=== PATIENT | male | born 1965 | race African-American/Black ===

== ENCOUNTER → 2017-01-01 | Outpatient (CLI) | payer OTHER ==
[2017-01-01 08:36] LABS: Basophils # (A) 0.1 k/uL (0-0.2); Basophils % (A) 1 %; CH 29.8; CHCM 33.6; Eosinophils # (A) 0.2 k/uL (0-0.7); Eosinophils % (A) 4 %; HCT 47.6 % (39.0-53.0); HDW 2.62; HGB 15.3 gm/dL (13.0-17.5); Luc # (Auto) 0.14; Luc % (Auto) 3; Lymphocytes # (A) 1.5 k/uL (1.0-4.8); Lymphocytes % (A) 28 %; MCH 28.7 pg (25.0-35.0); MCHC 32.2 g/dL (31.0-37.0); MCV 89.3 fL (80.0-100.0); Mean Platelet Volume 7.9; Monocytes # (A) 0.3 k/uL (0-1.0); Monocytes % (A) 6 %; Neutrophils % (A) 58 %; RBC 5.33 m/uL (4.30-5.90); RDW 15.1 % (11.5-15.5); WBC 5.2 k/uL (3.8-10.6); WBC (Perox) 5.41
[2017-01-01 08:49] LABS: ALT 44 U/L (21-72); AST 27 U/L (17-59); Alkaline Phosphatase 43 U/L (38-126); Anion Gap 8 mmol/L; Blood Urea Nitrogen 14 mg/dL (9-20); Calcium 9.2 mg/dL (8.4-10.2); Carbon Dioxide 23 mmol/L (22-30); Chloride 112 mmol/L (98-107); Cholesterol 104 mg/dL (<200); Glucose 101 mg/dL (74-99); HDL Cholesterol 46 mg/dL (40-60); Non-African American GFR(MDRD) >60 (>60 ml/min/1.73 sqM); Potassium 4.2 mmol/L (3.5-5.1); Sodium 143 mmol/L (137-145); Total Bilirubin 0.5 mg/dL (0.2-1.3); Total Protein 6.6 g/dL (6.3-8.2)
[2017-01-01 09:10] LABS: Prostate Specific Antigen 0.51 ng/mL (0.00-4.00)
[2017-01-01 13:23] LABS: Hemoglobin A1C 5.8 % (4.2-6.1)
== END | disposition home or self-care (01) ==
LOC: LABWHC1 07:54
PROVIDERS: ATTEND Internal Medicine
DX: E23.6 Other disorders of pituitary gland (principal)
CPT/HCPCS: 36415; 80053; 80061; 82306; 82533; 83001; 83002; 83036; 84146; 84153; 84305; 84403; 84439; 84443; 85025

== ENCOUNTER → 2017-01-09 | Outpatient (CLI) | payer OTHER ==
--- NOTE | 2017-01-09 19:47 | MR ---
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 FINDINGS: Extensive changes of sphenoidal sinusitis. Remains heterogeneous signal pattern within the pituitary gland consistent with previous surgery. The re is a concave superior border of the pituitary gland which is a normal configuration. The persists a 12 x 6 mm area of signal in the pituitary fossa stable in size. This may represent res idual thyroid tissue or neoplasm. Pituitary stock stable in position. Cavernous sinus enhances. Intracranial structures have a normal appearance. Visualized craniocervical junction maintained. Correlate for previous sinus surgery. Maxillary mucous retention cyst or sinusitis noted. IMPRESSION: 1. Postsurgical changes stable with a concave superior border of the pituitary gland which is a isabel l configuration. Heterogeneous signal within the pituitary fossa is stable from the previous exam lik sourav representing postsurgical change. 12 x 6 mm area of abnormal signal noted on the previous exam wi thin the pituitary fossa persistent is unchanged and may represent a degree of residual neoplasm. 2. Extensive sphenoidal sinusitis.
== END | disposition home or self-care (01) ==
LOC: RADMRIMAIN 18:19
PROVIDERS: ATTEND Internal Medicine
DX: E23.6 Other disorders of pituitary gland (principal); J32.3 Chronic sphenoidal sinusitis; Z98.890 Other specified postprocedural states
CPT/HCPCS: 70553; A9581

== ENCOUNTER 2018-10-27 11:08 | Day surgery (SDC) | payer OTHER ==
[2018-10-26 08:45] VITALS: BMI 36.9
[~2018-10-27 11:08] MED LIST: LACTATED RINGERS 1,000 ML IV SCH; LIDOCAINE 1% 20 ML VIAL (10MG/ML) FOR IV START INTRADERMA PRN
[2018-10-27 11:57] VITALS: TEMP 98.2
[2018-10-27] MEDS ORDERED: LIDOCAINE 1% INJ 10MG/ML (20 ML MDV) ONE (12:29)
[2018-10-27] MEDS ORDERED: PROPOFOL 10 MG/ML 20 ML VIAL IV ONE (12:29)
[2018-10-27 13:05] VITALS: RESP 18
--- NOTE | 2018-10-27 13:05 | P.PCN ---
Date of Procedure: 10/27/18 Procedure(s) Performed: Procedure: Total colonoscopy. Preoperative diagnosis: Screening for neoplasia. Postoperative diagnosis: Diverticulosis with no evidence of acute diverticulitis, strictures, polyps or cancer. Preparation: HalfLytely prep. Sedation: Was provided by anesthesia. Brief clinical history: The patient is a 53-year-old male who is scheduled for this evaluation for screening for neoplasia age being his risk factor. He has no abdominal complaints, bleeding or anemia. He had a prior exam several years back. Procedure: With the patient on his left lateral decubitus position and after informed consent and adequate sedation, the perianal area was inspected and it did not show any fissures or fistulas. There were no masses felt on digital rectal examination. The Olympus CFH 190L video colonoscope was then inserted in the rectum in the usual fashion and advanced to the cecum. There were multiple diverticular orifices seen scattered in the sigmoid with occasional one on the right side with no evidence of acute diverticulitis or strictures. The mucosa appeared healthy. No polyps or tumors were seen. I retroflexed the endoscope in the rectum before the endoscope was withdrawn. The patient tolerated the procedure well. Plan: The patient was reassured. Discussed dietary measures. He will follow up with you as planned and I recommended repeat exam in 10 years.
[2018-10-27 13:20] VITALS: BP 116/71; PULSE 80
== END 2018-10-27 13:36 | disposition home or self-care (01) ==
LOC: ORWHC2ENDO 11:08
DX: Z12.11 Encounter for screening for malignant neoplasm of colon (principal); K57.30 Diverticulosis of large intestine without perforation or abscess without bleeding; I10 Essential (primary) hypertension; J45.909 Unspecified asthma, uncomplicated; Z86.718 Personal history of other venous thrombosis and embolism; Z79.82 Long term (current) use of aspirin; Z79.891 Long term (current) use of opiate analgesic; Z79.899 Other long term (current) drug therapy; Z88.8 Allergy status to other drugs, medicaments and biological substances
CPT/HCPCS: 45378; J2001; J2704

== ENCOUNTER → 2018-11-24 | Outpatient (CLI) | payer OTHER ==
--- NOTE | 2018-11-24 14:28 | XR ---
EXAMINATION TYPE: XR knee limited LT DATE OF EXAM: 11/24/2018 COMPARISON: NONE HISTORY: Pain TECHNIQUE: Two views are submitted. FINDINGS: Severe narrowing patellofemoral joint with moderate narrowing of the knee joint. No erosive changes. Small suprapatellar bursal fluid collection.. Osseous structures are intact. No acute fracture seen . IMPRESSION: 1. Severe arthropathy..
== END | disposition home or self-care (01) ==
LOC: RADXRMAIN 13:56
PROVIDERS: ATTEND Family Medicine
DX: M17.12 Unilateral primary osteoarthritis, left knee (principal)

== ENCOUNTER → 2019-02-24 | Outpatient (CLI) | payer OTHER ==
--- NOTE | 2019-02-24 13:57 | MR ---
EXAMINATION TYPE: MR pituitary wo/w con DATE OF EXAM: 02/24/2019 COMPARISON: Prior pituitary MRI 01/09/2017, CT brain 04/29/2060, brain MRI 04/23/2016 HISTORY: difficulty walking, memory loss TECHNIQUE: Multiplanar, multisequence images of the sella turc[place] is performed without and with IV contrast, uti lizing 12 mL intravenous Gadavist . FINDINGS: Exam is stable in appearance. Pituitary gland shows unchanged appearance. Sphenoid sinus sh ows a similar appearance to prior exam. There are normal vascular flow voids. No abnormal enhancement following contrast administration. The craniocervical junction appears within normal limits. IMPRESSION: Stable exam.
== END ==
LOC: RADMRIMAIN 10:04
PROVIDERS: ATTEND Family Medicine
DX: H81.93 Unspecified disorder of vestibular function, bilateral (principal); Z00.01 Encounter for general adult medical examination with abnormal findings; Z86.018 Personal history of other benign neoplasm
CPT/HCPCS: 70553; A9585

== ENCOUNTER 2020-01-03 20:52 | Emergency (ER) | payer OTHER ==
[2020-01-03 20:58] VITALS: RESP 18; TEMP 98.1
[2020-01-03] MEDS ORDERED: LIDOCAINE 1% INJ 10MG/ML (20 ML MDV) SQ ONE (21:02)
[2020-01-03] MEDS ORDERED: ACET/COD 300 MG/30 MG STARTER PACK 6 TAB BTL PO STA (21:02)
[2020-01-03] MEDS ORDERED: SULFAMETH-TMP DS STARTER PACK 2 TAB BTL PO STA (22:07)
[2020-01-03] MEDS ORDERED: CEPHALEXIN 500MG STARTER PACK 4 CAP BTL PO STA (22:07)
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
[2020-01-03 22:29] VITALS: BP 130/85; PULSE 92
== END 2020-01-03 22:20 | disposition home or self-care (01) ==
LOC: EC 20:52
DX: L02.212 Cutaneous abscess of back [any part, except buttock and flank] (principal); I10 Essential (primary) hypertension; J45.909 Unspecified asthma, uncomplicated; F17.200 Nicotine dependence, unspecified, uncomplicated; Z79.51 Long term (current) use of inhaled steroids; Z79.82 Long term (current) use of aspirin; Z79.899 Other long term (current) drug therapy; Z88.8 Allergy status to other drugs, medicaments and biological substances; Z86.718 Personal history of other venous thrombosis and embolism
CPT/HCPCS: 87070; 87205; 99283; 10060; J2001

== ENCOUNTER → 2020-01-03 | Outpatient (CLI) | payer OTHER ==
[2020-01-03 08:43] LABS: Basophils # (A) 0.1 k/uL (0-0.2); Basophils % (A) 1 %; Eosinophils # (A) 0.3 k/uL (0-0.7); Eosinophils % (A) 4 %; HCT 48.3 % (39.0-53.0); HGB 15.7 gm/dL (13.0-17.5); Lymphocytes # (A) 1.7 k/uL (1.0-4.8); Lymphocytes % (A) 19 %; MCH 28.6 pg (25.0-35.0); MCHC 32.5 g/dL (31.0-37.0); MCV 87.8 fL (80.0-100.0); Mean Platelet Volume 7.6; Monocytes # (A) 0.6 k/uL (0-1.0); Monocytes % (A) 7 %; Neutrophils # (A) 6.2 k/uL (1.3-7.7); Neutrophils % (A) 68 %; Platelet Count 199 k/uL (150-450); RDW 13.8 % (11.5-15.5); WBC 9.1 k/uL (3.8-10.6)
[2020-01-03 15:35] LABS: African American GFR (CKD) 80.1 (60.0-200.0); Albumin/Globulin Ratio 1.6 (1.60-3.17); Anion Gap 7.2 mmol/L (4.00-12.00); BUN/Creat Ratio 11.67 Ratio (12.00-20.00); Calcium 9.2 mg/dL (8.7-10.3); Carbon Dioxide 26.8 mmol/L (21.6-31.8); Chol/HDL Ratio 3.14; Globulin 2.5 g/dL (1.6-3.3); LDL Cholesterol,Calculated 65.2 mg/dL (0.0-131.0); Non-African American GFR(CKD) 69.1 (60.0-200.0); Total Bilirubin 0.6 mg/dL (0.2-1.2); Total Protein 6.5 g/dL (6.2-8.2); VLDL Calculation 11.8 mg/dL (5.00-40.00)
[2020-01-03 15:43] LABS: Prostate Specific Antigen 0.5 ng/mL (0.0-3.5)
== END | disposition home or self-care (01) ==
LOC: LABWHC1 08:07
PROVIDERS: ATTEND Family Medicine
DX: I87.002 Postthrombotic syndrome without complications of left lower extremity (principal)
CPT/HCPCS: 36415; 80053; 80061; 84153; 85025

== ENCOUNTER 2021-08-30 23:43 | Emergency (ER) | payer OTHER ==
[2021-08-30 23:49] VITALS: RESP 18; TEMP 98.4
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
[2021-08-31 00:46] LABS: Basophils # (A) 0.1 k/uL (0-0.2); Basophils % (A) 1 %; Eosinophils # (A) 0.1 k/uL (0-0.7); Eosinophils % (A) 3 %; HGB 14.9 gm/dL (13.0-17.5); Lymphocytes # (A) 1.2 k/uL (1.0-4.8); Lymphocytes % (A) 30 %; MCH 29.2 pg (25.0-35.0); MCHC 33.1 g/dL (31.0-37.0); MCV 88.3 fL (80.0-100.0); Mean Platelet Volume 7.8; Monocytes # (A) 0.3 k/uL (0-1.0); Monocytes % (A) 8 %; Neutrophils # (A) 2.2 k/uL (1.3-7.7); Neutrophils % (A) 56 %; Platelet Count 180 k/uL (150-450); RDW 14.2 % (11.5-15.5)
--- NOTE | 2021-08-31 00:48 | XR ---
EXAMINATION TYPE: XR chest 2V DATE OF EXAM: 08/31/2021 COMPARISON: NONE HISTORY: Chest pain TECHNIQUE: 2 view FINDINGS: Heart and mediastinum are normal. Lungs are clear. Diaphragm is normal. Bony thorax is inta ct. There are chest leads. IMPRESSION: No active cardiopulmonary disease. Normal heart.
[2021-08-31 00:55] LABS: ALT 40 U/L (4-49); AST 37 U/L (17-59); African American GFR (CKD) >90 (>60 ml/min/1.73 sqM); Albumin 3.8 g/dL (3.5-5.0); Alkaline Phosphatase 56 U/L (38-126); Anion Gap 6 mmol/L; Blood Urea Nitrogen 17 mg/dL (9-20); Calcium 8.3 mg/dL (8.4-10.2); Carbon Dioxide 28 mmol/L (22-30); Chloride 108 mmol/L (98-107); Glucose 108 mg/dL (74-99); Non-African American GFR(CKD) 80 (>60 ml/min/1.73 sqM); Potassium 3.9 mmol/L (3.5-5.1); Sodium 142 mmol/L (137-145); Total Bilirubin 0.5 mg/dL (0.2-1.3); Total Protein 6.6 g/dL (6.3-8.2)
[2021-08-31 00:57] LABS: Partial Thromboplastin Time 22.4 sec (22.0-30.0); Prothrombin Time 10.7 sec (9.0-12.0)
--- NOTE | 2021-08-31 02:46 | CT ---
EXAMINATION TYPE: CT chest angio for PE DATE OF EXAM: 08/31/2021 COMPARISON: None HISTORY: chest pain/elevated d-dimer CT DLP: 563.8 mGycm Automated exposure control for dose reduction was used. CONTRAST: Performed with IV Contrast, patient injected with 80ml mL of Isovue 370. Images obtained from the thoracic inlet to the diaphragm with IV contrast. There are Three-D postproc essed images. There is minimal pleural thickening in the posterior lung roa. No evidence of a pulmonary mass. Mi nimal subsegmental atelectasis is present at the right lung base. There is slight elevated right diap hragm. There are no hilar masses. There is no mediastinal adenopathy. Thoracic aorta is intact. No an eurysm or dissection. The ascending aorta measures 3.5 cm. There is normal contrast opacification of the pulmonary arteries. No filling defect. Upper abdominal soft tissues show calcified cyst at the anterior aspect of the tail of the pancreas a t the splenic hilum that could be thrombosed splenic artery aneurysm. There are multiple small hypode nse areas in the liver. These are incompletely evaluated. Largest measures 1.5 cm. IMPRESSION: No evidence of pulmonary embolism. Mild elevation of the right diaphragm could relate to mild paralys is. No suspicious pulmonary mass.
[2021-08-31 04:29] VITALS: BP 145/89; PULSE 64
== END 2021-08-31 04:39 | disposition other institution (70) ==
LOC: EC 23:43
DX: R07.89 Other chest pain (principal); Z88.8 Allergy status to other drugs, medicaments and biological substances; Z87.891 Personal history of nicotine dependence; Z79.899 Other long term (current) drug therapy; Z79.82 Long term (current) use of aspirin
CPT/HCPCS: 36415; 93005; 85379; 80053; 83735; 84484; 85025; 85610; 85730; 71046; 71275; 99285; Q9967

== ENCOUNTER 2022-01-12 14:36 | Emergency (ER) | payer OTHER ==
[2022-01-12 14:52] VITALS: RESP 18; TEMP 98.7
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
[2022-01-12 16:14] VITALS: BP 146/97; PULSE 72
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
== END 2022-01-12 16:20 | disposition home or self-care (01) ==
LOC: EC 14:36
DX: S09.90XA Unspecified injury of head, initial encounter (principal); J45.909 Unspecified asthma, uncomplicated; I10 Essential (primary) hypertension; Z86.718 Personal history of other venous thrombosis and embolism; Z87.891 Personal history of nicotine dependence; Z79.51 Long term (current) use of inhaled steroids; Z79.899 Other long term (current) drug therapy; Z88.8 Allergy status to other drugs, medicaments and biological substances; Z88.3 Allergy status to other anti-infective agents; W18.00XA Striking against unspecified object with subsequent fall, initial encounter
CPT/HCPCS: 70450; 99284

== ENCOUNTER → 2022-01-23 | Outpatient (CLI) | payer OTHER ==
--- NOTE | 2022-01-25 04:17 | MR ---
EXAMINATION TYPE: MR brain wo/w con DATE OF EXAM: 01/23/2022 COMPARISON: None HISTORY: Trigeminal neuralgia, history of tumor removal 2014 CONTRAST: Standard multiplanar, multisequence MRI departmental protocol images were obtained without contrast a nd with 11 mL intravenous Gadavist gadolinium contrast. Multiplanar multi echo imaging of the brain performed without and with the IV contrast. On the diffusion images there are numerous scattered variable sized foci of increased signal at the g ray-white matter junction both cerebral hemispheres. Some of these are adjacent to the ventricles. Le sions measure up to 1.5 cm. There is corresponding numerous foci of increased signal on the T2 and FL AIR images in the periventricular white matter. On the T1 images these lesions mostly have low signal and do not enhance. There is normal enhancement of the venous sinuses. There is inhomogeneous enhanc ement of the sella turcica. Sella turcica is enlarged. This is also present on previous exams and not significantly different. There is intermediate signal in the posterior sphenoid sinus that could be surgical changes. IMPRESSION: Enlarged sella turcica with apparent postsurgical changes appear fairly stable compared to MR scan of 02/24/2019 Extensive periventricular white matter signal changes could be demyelinating disease. White matter di sease shows minimal progression compared to old MR scan of 08/19/2013. Microvascular ischemia also pos sible.
== END | disposition home or self-care (01) ==
LOC: RADMRIMAIN 19:45
PROVIDERS: ATTEND Neurological Surgery
DX: G50.0 Trigeminal neuralgia (principal)
CPT/HCPCS: 70553; A9585

== ENCOUNTER → 2022-05-20 | Outpatient (CLI) | payer OTHER ==
--- NOTE | 2022-05-20 16:19 | XR ---
EXAMINATION TYPE: XR lumbosacral spine min 4V DATE OF EXAM: 05/20/2022 3:57 PM INDICATION: Patient age:Male; 56 years old; Reason for study: R53.1 Weakness, R26.2 Difficulty in walking; COMPARISON: None TECHNIQUE: Frontal, lateral , bilateral oblique and coned in L5-S1 lateral views of the spine. FINDINGS: No evidence of any acute osseous pathology. No evidence of loss of vertebral body height i s seen. There is normal alignment of the lumbar vertebral bodies. Mild scattered disc space narrowing . Multilevel marginal osteophyte formation throughout the visualized spine. There is facet joint arth ropathy throughout the spine. Scattered at least mild neural foraminal stenosis. Right upper quadrant cholecystectomy clips. IMPRESSION: 1. No acute fracture. 2. Mild multilevel disc degeneration.
== END | disposition home or self-care (01) ==
LOC: RADXRMAIN 15:35
PROVIDERS: ATTEND Family Medicine
DX: M51.37 Other intervertebral disc degeneration, lumbosacral region (principal); R53.1 Weakness; R26.2 Difficulty in walking, not elsewhere classified; R73.09 Other abnormal glucose
CPT/HCPCS: 72110; 83036

== ENCOUNTER 2022-08-05 13:20 | Emergency (ER) | payer OTHER ==
[2022-08-05 13:47] VITALS: RESP 18
[2022-08-05] MEDS ORDERED: IBUPROFEN 600 MG TAB PO STA (13:56)
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
[2022-08-05 14:33] VITALS: BP 140/74; PULSE 76; TEMP 98
== END 2022-08-05 14:33 | disposition home or self-care (01) ==
LOC: EC 13:20
DX: K11.8 Other diseases of salivary glands (principal); J45.909 Unspecified asthma, uncomplicated; I10 Essential (primary) hypertension; Z86.718 Personal history of other venous thrombosis and embolism; Z87.891 Personal history of nicotine dependence; F12.90 Cannabis use, unspecified, uncomplicated; Z88.8 Allergy status to other drugs, medicaments and biological substances; Z79.82 Long term (current) use of aspirin; Z79.899 Other long term (current) drug therapy
CPT/HCPCS: 99283

== ENCOUNTER 2022-08-30 17:24 | Emergency (ER) | payer OTHER ==
[2022-08-30 17:32] VITALS: RESP 18
[2022-08-30] MEDS ORDERED: diphenhydrAMINE 50 MG CAP PO STA (17:41)
[2022-08-30] MEDS ORDERED: FLUORESCEIN STRIPS 1 MG STRIP BOTH EYES ONE (17:41)
[2022-08-30] MEDS ORDERED: PROPARACAINE 0.5% OPHTH DROPS 15 ML BTL LEFT EYE STA (17:41)
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
[2022-08-30 18:10] VITALS: BP 149/88; PULSE 76; TEMP 98.5
== END 2022-08-30 18:16 | disposition home or self-care (01) ==
LOC: EC 17:24
DX: L30.9 Dermatitis, unspecified (principal); I10 Essential (primary) hypertension; J45.909 Unspecified asthma, uncomplicated; F12.90 Cannabis use, unspecified, uncomplicated; Z79.82 Long term (current) use of aspirin; Z79.899 Other long term (current) drug therapy; Z87.891 Personal history of nicotine dependence; Z88.8 Allergy status to other drugs, medicaments and biological substances
CPT/HCPCS: 99282

== ENCOUNTER 2022-12-10 00:10 | Observation (INO) | payer OTHER ==
[2022-12-10 00:15] VITALS: TEMP 98.2
[2022-12-10 00:58] LABS: Basophils % (A) 1 %; Eosinophils # (A) 0.2 k/uL (0-0.7); Eosinophils % (A) 4 %; HCT 45.2 % (39.0-53.0); Lymphocytes # (A) 1.4 k/uL (1.0-4.8); Lymphocytes % (A) 30 %; MCH 29.2 pg (25.0-35.0); MCHC 33.3 g/dL (31.0-37.0); MCV 87.7 fL (80.0-100.0); Mean Platelet Volume 7.7; Monocytes # (A) 0.4 k/uL (0-1.0); Monocytes % (A) 8 %; Neutrophils # (A) 2.5 k/uL (1.3-7.7); Neutrophils % (A) 54 %; Platelet Count 176 k/uL (150-450); RBC 5.15 m/uL (4.30-5.90); RDW 14.1 % (11.5-15.5); WBC 4.6 k/uL (3.8-10.6)
[2022-12-10 01:06] LABS: ALT 37 U/L (4-49); AST 33 U/L (17-59); African American GFR (CKD) 67 (>60 ml/min/1.73 sqM); Alkaline Phosphatase 66 U/L (38-126); Anion Gap 5 mmol/L; Blood Urea Nitrogen 20 mg/dL (9-20); Calcium 8.6 mg/dL (8.4-10.2); Carbon Dioxide 30 mmol/L (22-30); Chloride 106 mmol/L (98-107); Glucose 86 mg/dL (74-99); Non-African American GFR(CKD) 58 (>60 ml/min/1.73 sqM); Potassium 4.3 mmol/L (3.5-5.1); Sodium 141 mmol/L (137-145); Total Bilirubin 0.3 mg/dL (0.2-1.3); Total Protein 6.8 g/dL (6.3-8.2)
[2022-12-10 01:27] LABS: Partial Thromboplastin Time 25.1 sec (22.0-30.0); Prothrombin Time 10.6 sec (9.0-12.0)
--- NOTE | 2022-12-10 02:30 | XR ---
EXAM: XR Chest, 2 Views CLINICAL HISTORY: ITS.REASON XR Reason: chest pain TECHNIQUE: Frontal and lateral views of the chest. COMPARISON: 08/31/2021 FINDINGS: Lungs: Unremarkable. No consolidation. Pleural space: Unremarkable. No pneumothorax. No pleural effusions. Heart: Unremarkable. No cardiomegaly. Mediastinum: Unremarkable. Bones/joints: No acute osseous abnormalities. IMPRESSION: No acute cardiopulmonary disease.
[2022-12-10] MEDS ORDERED: NALOXONE 0.4 MG/ML 1 ML VIAL IV PRN (04:42)
[2022-12-10] MEDS ORDERED: ONDANSETRON 4 MG/2 ML VIAL IVP PRN (04:42)
[2022-12-10] MEDS ORDERED: MORPHINE SULFATE 4 MG/ML SYRINGE IV PRN (04:42)
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
[2022-12-10] MEDS ORDERED: SODIUM CHLORIDE 0.9% 1,000 ML IV SCH (04:45)
[2022-12-10] MEDS ORDERED: HYDROcodone/APAP 7.5-325MG 1 EACH TAB PO PRN (10:06)
[2022-12-10] MEDS ORDERED: ASPIRIN 81 MG PO SCH (10:15)
[2022-12-10] MEDS ORDERED: MONTELUKAST 10 MG TAB PO SCH (10:15)
[2022-12-10] MEDS ORDERED: carBAMazepine 300 MG CPMP.12HR PO SCH (10:15)
[2022-12-10] MEDS ORDERED: amLODIPine 5 MG TAB PO SCH (10:15)
[2022-12-10] MEDS ORDERED: TAMSULOSIN 0.4 MG CAP.ER.24H PO SCH (10:15)
[2022-12-10] MEDS ORDERED: LORATADINE 10 MG TAB PO SCH (10:15)
[2022-12-10 10:44] VITALS: PULSE 62; RESP 18
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
--- NOTE | 2022-12-10 12:51 | CA ---
Transthoracic Echo Report Name: Ethan Valdez Age: 57 Gender: M : 1965 Exam Date: 12/10/2022 11:05 Exam Location: [place] [facility] Ht (in): 70 Wt (lb): 230 Ordering Physician: Toma Manriquez Attending/Referring Phys: Declan PEACE Stave Cutter Reinaldo Silva Procedure CPT: Indications: Chest Pain Cardiac Hx: Technical Quality: Fair Contrast 1: Total Dose (mL): Contrast 2: Total Dose (mL): MEASUREMENTS (Male / Female) Normal Values 2D ECHO LV Diastolic Diameter PLAX 4.9 cm 4.2 - 5.9 / 3.9 - 5.3 cm LV Systolic Diameter PLAX 3.4 cm IVS Diastolic Thickness 1.3 cm 0.6 - 1.0 / 0.6 - 0.9 cm LVPW Diastolic Thickness 1.3 cm 0.6 - 1.0 / 0.6 - 0.9 cm LV Relative Wall Thickness 0.5 RV Internal Dim ED PLAX 4.3 cm LVOT Diameter 2.1 cm Aortic Root Diameter 3.2 cm LA Systolic Diameter LX 3.2 cm 3.0 - 4.0 / 2.7 - 3.8 cm LV Diastolic Volume MOD BP 68.4 cm??? 67 - 155 / 56 - 104 cm??? LV Systolic Volume MOD BP 36.7 cm??? 22 - 58 / 19 - 49 cm??? LV Ejection Fraction MOD BP 46.3 % >= 55 % LV Diastolic Volume MOD 4C 64.5 cm??? LV Systolic Volume MOD 4C 35.0 cm??? LV Ejection Fraction MOD 4C 45.7 % LV Diastolic Length 4C 6.7 cm LV Systolic Length 4C 6.1 cm LV Diastolic Volume MOD 2C 74.2 cm??? LV Systolic Volume MOD 2C 25.8 cm??? LV Ejection Fraction MOD 2C 65.3 % LV Diastolic Length 2C 6.7 cm LV Systolic Length 2C 5.5 cm LA Volume 46.3 cm??? 18 - 58 / 22 - 52 cm??? Ascending Aorta Diameter 3.0 cm DOPPLER AV Peak Velocity 109.8 cm/s AV Peak Gradient 4.8 mmHg LVOT Peak Velocity 81.6 cm/s LVOT Peak Gradient 2.7 mmHg AV Area Cont Eq pk 2.5 cm??? MV Peak Velocity 70.0 cm/s MV Peak Gradient 2.0 mmHg MV Mean Velocity 34.5 cm/s MV Mean Gradient 0.6 mmHg MV Velocity Time Integral 23.8 cm MR Peak Velocity 192.4 cm/s MR Peak Gradient 14.8 mmHg Mitral E Point Velocity 50.9 cm/s Mitral A Point Velocity 56.7 cm/s Mitral E to A Ratio 0.9 MV Deceleration Time 200.8 ms MV E' Velocity 8.4 cm/s Mitral E to MV E' Ratio 6.1 TR Peak Velocity 214.5 cm/s TR Peak Gradient 18.4 mmHg Right Ventricular Systolic Press 24.0 mmHg PV Peak Velocity 112.9 cm/s PV Peak Gradient 5.1 mmHg FINDINGS Left Ventricle Normal LV size . Mild concentric LVH. Left ventricular ejection fraction is estimated at 50 %. Right Ventricle RV lenny upper limits of normal in size. RVSP= 33mmhg. Right Atrium Normal right atrial size. Left Atrium Normal left atrial size. Mitral Valve Structurally normal mitral valve. Trace MR. Aortic Valve Trileaflet aortic valve. No aortic valve stenosis or regurgitation. Tricuspid Valve Structurally normal tricuspid valve. Mild TR. Pulmonic Valve Structurally normal pulmonic valve. Mild PI. Pericardium Normal pericardium. Aorta Normal size aortic root and proximal ascending aorta. CONCLUSIONS Left ventricular ejection fraction 50% RVSP 33 Trace mitral regurgitation Mild tricuspid regurgitation Previewed by: Dr. Ryan Branch DO (Electronically Signed) Final Date: 10 December 2022 12:49
[2022-12-10 14:42] VITALS: BP 128/80
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
== END 2022-12-10 14:40 | disposition home or self-care (01) ==
LOC: EC 00:10 → 6NMEDSUR 04:43
PROVIDERS: ADMIT Hospitalist; ATTEND Hospitalist
DX: R07.89 Other chest pain (principal); I10 Essential (primary) hypertension; J45.909 Unspecified asthma, uncomplicated; F12.90 Cannabis use, unspecified, uncomplicated; Z87.891 Personal history of nicotine dependence; Z86.718 Personal history of other venous thrombosis and embolism; Z79.82 Long term (current) use of aspirin; Z79.899 Other long term (current) drug therapy
CPT/HCPCS: 99285; 36415; 93005; 93306; 80053; 84484; 85025; 85610; 85730; 71046; G0378

== ENCOUNTER → 2022-12-12 | Outpatient (CLI) | payer OTHER ==
[2022-12-12 20:32] LABS: BUN/Creat Ratio 16.64 Ratio (12.00-20.00); Blood Urea Nitrogen 18.3 mg/dL (9.0-27.0); Calcium 8.6 mg/dL (8.7-10.3); Carbon Dioxide 28.7 mmol/L (21.6-31.8); Chloride 107 mmol/L (96-109); Glucose 125 mg/dL (70-110); Potassium 4.1 mmol/L (3.5-5.5); Sodium 143 mmol/L (135-145)
== END | disposition home or self-care (01) ==
LOC: LABWHC1 13:08
PROVIDERS: ATTEND Nurse Practitioner Family
DX: N17.8 Other acute kidney failure (principal)
CPT/HCPCS: 36415; 80048

== ENCOUNTER 2023-01-09 09:34 | Emergency (ER) | payer OTHER ==
[2023-01-09 10:31] LABS: Basophils % (A) 1 %; Eosinophils # (A) 0.1 k/uL (0-0.7); Eosinophils % (A) 3 %; HCT 46.2 % (39.0-53.0); HGB 15.1 gm/dL (13.0-17.5); Lymphocytes # (A) 0.8 k/uL (1.0-4.8); Lymphocytes % (A) 24 %; MCH 28.5 pg (25.0-35.0); MCHC 32.6 g/dL (31.0-37.0); MCV 87.3 fL (80.0-100.0); Mean Platelet Volume 7.7; Monocytes # (A) 0.2 k/uL (0-1.0); Monocytes % (A) 7 %; Neutrophils # (A) 2.1 k/uL (1.3-7.7); Neutrophils % (A) 64 %; Platelet Count 166 k/uL (150-450); RBC 5.29 m/uL (4.30-5.90); RDW 14.2 % (11.5-15.5); WBC 3.3 k/uL (3.8-10.6)
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
[2023-01-09 11:03] LABS: ALT 40 U/L (4-49); AST 62 U/L (17-59); African American GFR (CKD) >90 (>60 ml/min/1.73 sqM); Albumin 4.5 g/dL (3.5-5.0); Alkaline Phosphatase 70 U/L (38-126); Anion Gap 8 mmol/L; Blood Urea Nitrogen 21 mg/dL (9-20); Calcium 8.6 mg/dL (8.4-10.2); Carbon Dioxide 24 mmol/L (22-30); Chloride 107 mmol/L (98-107); Glucose 97 mg/dL (74-99); Non-African American GFR(CKD) >90 (>60 ml/min/1.73 sqM); Sodium 139 mmol/L (137-145); Total Bilirubin 1.6 mg/dL (0.2-1.3); Total Protein 7.7 g/dL (6.3-8.2)
[2023-01-09 11:06] LABS: Potassium 5.7 mmol/L (3.5-5.1)
[2023-01-09 12:48] VITALS: BP 149/98; PULSE 80; RESP 19; TEMP 98.6
== END 2023-01-09 12:47 | disposition home or self-care (01) ==
LOC: EC 09:34
DX: G50.0 Trigeminal neuralgia (principal); J45.909 Unspecified asthma, uncomplicated; I10 Essential (primary) hypertension; F12.90 Cannabis use, unspecified, uncomplicated; Z79.82 Long term (current) use of aspirin; Z79.899 Other long term (current) drug therapy; Z87.891 Personal history of nicotine dependence; Z88.6 Allergy status to analgesic agent; Z88.8 Allergy status to other drugs, medicaments and biological substances
CPT/HCPCS: 36415; 80053; 85025; 99284

== ENCOUNTER 2023-02-23 21:42 | Emergency (ER) | payer OTHER ==
[2023-02-23 22:07] VITALS: TEMP 98.4
[2023-02-23 22:11] LABS: Basophils % (A) 0 %; Eosinophils # (A) 0.1 k/uL (0-0.7); Eosinophils % (A) 5 %; HCT 44.5 % (39.0-53.0); HGB 14.9 gm/dL (13.0-17.5); Lymphocytes % (A) 32 %; MCH 29.3 pg (25.0-35.0); MCHC 33.4 g/dL (31.0-37.0); MCV 87.8 fL (80.0-100.0); Mean Platelet Volume 7.5; Monocytes # (A) 0.2 k/uL (0-1.0); Monocytes % (A) 5 %; Neutrophils # (A) 1.7 k/uL (1.3-7.7); Neutrophils % (A) 55 %; Platelet Count 184 k/uL (150-450); RBC 5.07 m/uL (4.30-5.90); RDW 13.9 % (11.5-15.5); WBC 3.2 k/uL (3.8-10.6)
[2023-02-23 22:20] LABS: ALT 33 U/L (4-49); AST 25 U/L (17-59); African American GFR (CKD) >90 (>60 ml/min/1.73 sqM); Albumin 3.9 g/dL (3.5-5.0); Alkaline Phosphatase 66 U/L (38-126); Anion Gap 7 mmol/L; Blood Urea Nitrogen 9 mg/dL (9-20); Calcium 8.6 mg/dL (8.4-10.2); Carbon Dioxide 26 mmol/L (22-30); Chloride 107 mmol/L (98-107); Creatine Kinase 86 U/L (55-170); Glucose 95 mg/dL (74-99); Non-African American GFR(CKD) >90 (>60 ml/min/1.73 sqM); Potassium 3.7 mmol/L (3.5-5.1); Sodium 140 mmol/L (137-145); Total Bilirubin 0.5 mg/dL (0.2-1.3); Total Protein 6.4 g/dL (6.3-8.2)
[2023-02-23 22:25] LABS: Partial Thromboplastin Time 24.4 sec (22.0-30.0)
--- NOTE | 2023-02-23 23:40 | XR ---
EXAM: XR Chest, 2 Views CLINICAL HISTORY: ITS.REASON XR Reason: altered mental status TECHNIQUE: Frontal and lateral views of the chest. COMPARISON: No relevant prior studies available. FINDINGS: Lungs: Unremarkable. No consolidation. Pleural space: Unremarkable. No pneumothorax. Heart: Unremarkable. No cardiomegaly. Mediastinum: Unremarkable. Bones/joints: Unremarkable. IMPRESSION: Normal chest x-rays.
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
--- NOTE | 2023-02-24 00:54 | CT ---
EXAM: CT Head Without Intravenous Contrast CLINICAL HISTORY: ITS.REASON CT Reason: numbness left arm TECHNIQUE: Axial computed tomography images of the head/brain without intravenous contrast. CTDI is 49.2 mGy and DLP is 1232.4 mGy-cm. This CT exam was performed using one or more of the following dose reduction techniques: automated exposure control, adjustment of the mA and/or kV according to patient size, and/or use of iterative reconstruction technique. COMPARISON: No relevant prior studies available. FINDINGS: No acute intracranial hemorrhage. No midline shift or mass effect. The territorial weathers-white matter differentiation is maintained throughout. The ventricles and sulci are commensurate with age. The visualized orbits appear grossly unremarkable. The calvarium is intact. Paranasal sinus mucosal thickening. IMPRESSION: No acute intracranial hemorrhage, midline shift, or mass effect.
[2023-02-24 01:24] VITALS: BP 128/88; PULSE 89; RESP 18
[2023-02-24] MEDS ORDERED: Acetaminophen-Codeine 300-30mg TAB PO STA (01:42)
== END 2023-02-24 02:36 | disposition home or self-care (01) ==
LOC: EC 21:42
DX: M54.10 Radiculopathy, site unspecified (principal); I10 Essential (primary) hypertension; J45.909 Unspecified asthma, uncomplicated; Z79.82 Long term (current) use of aspirin; Z79.899 Other long term (current) drug therapy; Z88.8 Allergy status to other drugs, medicaments and biological substances; Z87.891 Personal history of nicotine dependence; Z86.718 Personal history of other venous thrombosis and embolism
CPT/HCPCS: 36415; 70450; 71046; 80053; 82550; 84484; 85025; 85610; 85730; 99284

== ENCOUNTER 2023-03-04 19:46 | Emergency (ER) | payer OTHER ==
[2023-03-04 20:07] VITALS: TEMP 98.4
--- NOTE | 2023-03-04 21:51 | US ---
EXAMINATION TYPE: US venous doppler duplex LE LT DATE OF EXAM: 03/04/2023 7:55 PM COMPARISON: NONE CLINICAL INDICATION: Male, 57 years old with history of pain; pain in left leg x years. Pt states the pain comes and goes depending on the day. Hx of DVT in left leg. Not on blood thinners anymore SIDE PERFORMED: Left TECHNIQUE: The lower extremity deep venous system is examined utilizing real time linear array sonog mirtha with graded compression, doppler sonography and color-flow sonography. VESSELS IMAGED: Common Femoral Vein Deep Femoral Vein Greater Saphenous Vein * Femoral Vein Popliteal Vein Small Saphenous Vein * Proximal Calf Veins (* superficial vessels) Left Leg: Echoes seen in the popliteal vein, but there is good color flow. The vein is mostly compre ssible Otherwise:Grayscale, color doppler, spectral doppler imaging performed of the deep veins of the lower extremities. There is normal flow, compressibility, vascular waveforms. IMPRESSION: Eccentric echoes within the popliteal vein that are not occlusive. Correlate for chronic deep vein th rombosis.
[2023-03-04] MEDS ORDERED: HYDROmorphone 0.5 MG/0.5 ML SYRINGE IM STA (22:22)
--- NOTE | 2023-03-04 22:46 | XR ---
EXAM: XR Left Tibia and Fibula, 2 Views CLINICAL HISTORY: ITS.REASON XR Reason: pain TECHNIQUE: Frontal and lateral views of the left tibia and fibula. COMPARISON: No relevant prior studies available. FINDINGS: Bones/joints: Osseous demineralization. No fracture or dislocation. Soft tissues: Unremarkable. No radiopaque foreign body. IMPRESSION: No fracture or dislocation.
[2023-03-04] MEDS ORDERED: APIXABAN 5 MG TAB PO STA (22:56)
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
[2023-03-04 23:56] VITALS: BP 123/72; PULSE 74; RESP 18
== END 2023-03-04 23:42 | disposition home or self-care (01) ==
LOC: EC 19:46
DX: M79.605 Pain in left leg (principal); J45.909 Unspecified asthma, uncomplicated; I10 Essential (primary) hypertension; Z86.718 Personal history of other venous thrombosis and embolism; Z87.891 Personal history of nicotine dependence; F12.90 Cannabis use, unspecified, uncomplicated; Z88.8 Allergy status to other drugs, medicaments and biological substances; Z79.82 Long term (current) use of aspirin; Z79.899 Other long term (current) drug therapy
CPT/HCPCS: 73590; 93971; 99284; 96372; J1170

== ENCOUNTER → 2023-04-17 | Outpatient (CLI) | payer OTHER ==
--- NOTE | 2023-04-17 13:52 | XR ---
EXAMINATION TYPE: XR cervical spine comp DATE OF EXAM: 04/17/2023 COMPARISON: NONE HISTORY: Pain TECHNIQUE: Four views are submitted. FINDINGS: The odontoid is intact. There are no compression deformities. The prevertebral soft tissue structur es are within normal limits. There is severe degenerative disc disease C4-5, C5-6 60 C7 with posteri or spondylosis. Foraminal encroachment at these levels. IMPRESSION: 1. Multilevel severe degenerative disc disease most marked at levels C4-C7 with suspected bilateral f oraminal encroachment. Consider follow-up MRI.
--- NOTE | 2023-04-17 13:56 | XR ---
EXAM TYPE: LUMBAR SPINE X RAY SERIES COMPARISON: 05/30/2022 HISTORY: Pain TECHNIQUE: 4 views are submitted. FINDINGS: Alignment is anatomic. The pedicles are intact. The transverse processes are intact. There is no s pondylolysis or spondylolisthesis. Facet arthropathy L4-5 and L5-S1 with moderate to severe degenera tive disc disease L5-S1 and moderate changes at L4-5. Additional multilevel hypertrophic spurring and mild degenerative disc disease L2-L3. IMPRESSION: 1. Multilevel degenerative disc disease with facet arthropathy most marked at L4-5 and L5-S1 with shreyas pected foraminal encroachment. Findings are similar to prior exam. Consider MRI follow-up..
== END | disposition home or self-care (01) ==
LOC: RADXRMAIN 13:00
PROVIDERS: ATTEND Psychiatry & Neurology Neurology
DX: M50.321 Other cervical disc degeneration at C4-C5 level (principal); M51.36 Other intervertebral disc degeneration, lumbar region; M47.816 Spondylosis without myelopathy or radiculopathy, lumbar region
CPT/HCPCS: 72050; 72110

== ENCOUNTER 2024-02-23 14:34 | Observation (INO) | payer OTHER ==
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
[2024-02-23 15:36] LABS: ALT 28 U/L (4-49); AST 26 U/L (17-59); African American GFR (CKD) 88 (>60 ml/min/1.73 sqM); Albumin 3.6 g/dL (3.5-5.0); Alkaline Phosphatase 62 U/L (38-126); Anion Gap 5 mmol/L; Blood Urea Nitrogen 15 mg/dL (9-20); Calcium 8.6 mg/dL (8.4-10.2); Carbon Dioxide 27 mmol/L (22-30); Chloride 110 mmol/L (98-107); Creatine Kinase 80 U/L (55-170); Glucose 96 mg/dL (74-99); Non-African American GFR(CKD) 76 (>60 ml/min/1.73 sqM); Potassium 3.7 mmol/L (3.5-5.1); Sodium 142 mmol/L (137-145); Total Bilirubin 0.7 mg/dL (0.2-1.3); Total Protein 6.1 g/dL (6.3-8.2)
[2024-02-23 15:41] LABS: Partial Thromboplastin Time 20.8 sec (22.0-30.0); Prothrombin Time 10.8 sec (10.0-12.5)
[2024-02-23 15:46] LABS: Basophils % (A) 1 %; Eosinophils # (A) 0.1 k/uL (0-0.7); Eosinophils % (A) 2 %; HCT 43.9 % (39.0-53.0); HGB 14.8 gm/dL (13.0-17.5); Lymphocytes # (A) 0.7 k/uL (1.0-4.8); Lymphocytes % (A) 25 %; MCH 29.3 pg (25.0-35.0); MCHC 33.7 g/dL (31.0-37.0); MCV 86.9 fL (80.0-100.0); Mean Platelet Volume 7.6; Monocytes # (A) 0.2 k/uL (0-1.0); Monocytes % (A) 7 %; Neutrophils # (A) 1.8 k/uL (1.3-7.7); Neutrophils % (A) 63 %; Platelet Count 172 k/uL (150-450); RBC 5.05 m/uL (4.30-5.90); RDW 14.7 % (11.5-15.5); WBC 2.9 k/uL (3.8-10.6)
--- NOTE | 2024-02-23 15:54 | CT ---
EXAMINATION TYPE: CT brain wo con DATE OF EXAM: 02/23/2024 COMPARISON: 02/24/2023 HISTORY: slurred speech CT DLP: 1158.6 mGycm Automated exposure control for dose reduction was used. Findings: The ventricles, basal cisterns and sulci over the convexities are within normal limits and there is n o mass effect or shift of midline structures. There are 2 small remote infarcts one in the right parietal white matter and the other in the region of the left insular cortex. There is no acute intra or extra-axial hemorrhage. The posterior fossa including the brainstem, fourth ventricle and cerebellar pontine angles appear no rmal. Intraorbital contents appear normal and symmetric. There is a large mucous retention cyst or polyp in the right maxillary sinus. There is complete opaci fication of the sphenoid sinus. The mastoid air cells are well aerated. The calvarium is intact. IMPRESSION: 1. No acute bleed or mass effect. 2. 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 3. Inflammatory changes in the paranasal sinuses as described above. [facility], , 02/23/2024 3:51 PM
--- NOTE | 2024-02-23 15:57 | CT ---
EXAMINATION TYPE: CT angio head neck DATE OF EXAM: 02/23/2024 HISTORY: slurred speech COMPARISON: None CT DLP: 582.9 mGycm. Automated Exposure Control for Dose Reduction was Utilized. TECHNIQUE: CTA scan of the head and neck is performed with IV Contrast, patient injected with 65ml m L of Isovue 370, axial images are obtained, coronal and sagittal reformatted images are reviewed. 3D reconstructed images are created on an independent workstation and reviewed. FINDINGS: FINDINGS: The brachiocephalic origins are widely patent and no significant stenosis. There is no significant stenosis of the common or internal carotid arteries within the neck. There is no stenosis of the vertebral arteries. Intracranially, there is no stenosis, segmental occlusion, sizable aneurysm sac or vascular malformat ion. IMPRESSION:. No significant abnormality seen. NASCET criteria was used in interpretation of this exam? [facility], Workstation: [email or web address] 02/23/2024 3:55 PM
--- NOTE | 2024-02-23 16:01 | XR ---
EXAMINATION TYPE: XR chest 2V DATE OF EXAM: 02/23/2024 COMPARISON: 02/23/2023 HISTORY: Altered mental status TECHNIQUE: Frontal and lateral views of the chest are obtained. FINDINGS: There is no focal air space opacity, pleural effusion, or pneumothorax seen. The cardiac silhouette size is within normal limits. The osseous structures are intact. IMPRESSION: No acute cardiopulmonary process. [facility], Workstation: [email or web address] 02/23/2024 3:58 PM
[2024-02-23] MEDS: amLODIPine 5 MG TAB PO STA (17:33)
[2024-02-23] MEDS: SODIUM CHLORIDE 0.9% 1,000 ML IV SCH (17:34)
[2024-02-23] MEDS: ASPIRIN 325 MG TAB PO STA (17:34)
[2024-02-23] MEDS: IPRATROPIUM-ALBUTEROL 3 ML NEB INHALATION SCH (20:42)
[2024-02-23] MEDS: HYDROmorphone 0.5 MG/0.5 ML SYRINGE IVP PRN (21:47)
[2024-02-23] MEDS: carBAMazepine 400 MG TAB.ER.12H PO SCH (21:47)
[2024-02-24] MEDS: KETOROLAC 15 MG/ML 1 ML VIAL IVP SCH (00:23)
[2024-02-24] MEDS: methylPREDNISolone SOD SUCCI 40 MG/ML 1 ML VIAL IV SCH (00:24)
[2024-02-24] MEDS: ONDANSETRON ODT 4 MG TAB PO PRN (05:49)
--- NOTE | 2024-02-24 05:56 | HP ---
HISTORY AND PHYSICAL HISTORY OF PRESENT ILLNESS: A 58-year-old male came in for slurred speech. It started a week ago after he fell and hit his head and towards chest. He has some bruising over his left chest and ribs. He has no new extremity weakness. He does use a recliner walker. He has no known history of DVT. Mild chest discomfort today. He says he had some kind of brain surgery in the past, unsure what kind that is. MEDICATIONS: He takes, 1. Norvasc 5 mg at home. 2. Carbamazepine 400 b.i.d. 3. Singulair 10 daily. 4. Aspirin 81 daily. ALLERGIES: He has allergies to Heparin. REVIEW OF SYSTEMS: A 14-point review of systems otherwise negative except for shortness of breath. He denies headache, worsening weakness, or confusion. 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 PHYSICAL EXAMINATION: VITAL SIGNS: Blood pressure 132/90, O2 of 100%, temp 97.9, pulse 79 to 82, respiratory rate 16 to 18. EXTREMITIES: No edema. HEART: S1, S2. NEUROLOGIC: Cranial nerves are intact. His speech appears a little bit slurred and rushed, although I can understand it. He states this has been there for a week since he fell on his head and his left ribs. INTEGUMENT: He has bruising under his ribs. HEENT: He has tongue deviation to the left. ASSESSMENT: Possibly he had a transient ischemic attack, cerebrovascular accident, or possible concussion, unclear at this time. Carotid artery CTA all normal. EKG shows sinus rhythm, normal ST-T changes. Labs were reviewed. Leukopenia. White count 2.9, hemoglobin is 14.8. He had transient cerebral ischemia versus concussion versus CVA. He has some weakness on his extremities and he states on his left side. Continue current treatment, home medications. He says he has a history of trigeminal neuralgia, for what he had to use Tegretol for. Possibly add some Toradol shots as he is in a lot of pain, he states. Prognosis guarded. MMODL / IJN: [id number] /
--- NOTE | 2024-02-24 08:30 | US ---
EXAMINATION TYPE: US carotid duplex BILAT DATE OF EXAM: 02/23/2024 COMPARISON: NONE CLINICAL INDICATION: Male, 58 years old with history of Stenosis; TIA today, normal CTAngio TECHNIQUE: Grayscale, color Doppler and spectral Doppler evaluation of the bilateral carotid systems and vertebral arteries.Indirect Doppler criteria was utilized. FINDINGS: EXAM MEASUREMENTS: RIGHT: Peak Systolic Velocity (PSV) cm/sec ----- Right CCA: 43.0 ----- Right ICA: 74.6 ----- Right ECA: 68.5 ICA/CCA ratio: 1.7 RIGHT: End Diastole cm/sec ----- Right CCA: 9.5 ----- Right ICA: 27.9 ----- Right ECA: 11.9 LEFT: Peak Systolic Velocity (PSV) cm/sec ----- Left CCA: 40.6 ----- Left ICA: 68.9 ----- Left ECA: 75.1 ICA/CCA ratio: 1.7 LEFT: End Diastole cm/sec ----- Left CCA: 9.1 ----- Left ICA: 0.0 ----- Left ECA: 16.1 VERTEBRALS (direction of flow): Right Vertebral: Antegrade Left Vertebral: Antegrade Rhythm: Normal REFINERY OPERATOR REFORMING UNIT NOTES: Mild homogeneous plaque with no stenosis seen IMPRESSION: Right: Less than 50% stenosis of the carotid bifurcation. Normal (no stenosis)=ICA PSV < 125 cm/s: ra hussain < 2.0: ICA EDV<40 cm/s. Left: Less than 50% stenosis of the carotid bifurcation. Normal (no stenosis)=ICA PSV < 125 cm/s: rat io < 2.0: ICA EDV<40 cm/s. Criteria for Assigning % of Stenosis / Diameter reduction (Estimation based on the indirect measurements of the internal carotid artery velocities (ICA PSV). 1. Normal (no stenosis)=ICA PSV < 125 cm/s: ratio < 2.0: ICA EDV<40 cm/s. 2. Less than 50% stenosis=ICA PSV < 125 cm/s: ratio < 2.0: ICA EDV<40 cm/s. 3. 50 to 69% stenosis=ICA PSV of 125 to 230 cm/s: ration 2.0 ? 4.0: ICA EDV 40-100 cm/s. 4. Greater than 70% stenosis to near occlusion= ICA PSV > 230 cm/s: ratio > 4.0: ICA EDV > 100 cm/s. 5. Near occlusion= ICA PSV velocities may be low or undetectable: variable ratio and ICA EDV. 6. Total occlusion=unable to detect flow. [facility], , 02/24/2024 8:28 AM
[2024-02-24] MEDS ORDERED: ASPIRIN 325 MG TAB PO SCH (09:00)
--- NOTE | 2024-02-24 10:14 | CT ---
EXAMINATION TYPE: CT chest abdomen wo con CT DLP: 844.1 mGycm, Automated exposure control for dose reduction was used. DATE OF EXAM: 02/24/2024 9:19 AM COMPARISON: 03/24/2012, CT 08/31/2021. CLINICAL INDICATION: Male, 58 years old with history of luq hematoma; PHH, luq hematoma Technique: CT chest abdomen wo con; Multiple axial images were obtained. Two-dimensional coronal and sagittal reconstructions were obtained. Contrast used: mL of , Oral contrast used: without Oral Contrast Findings: CHEST: LUNGS/ PLEURA: No focal consolidation, pneumothorax or pleural effusion. AIRWAY: Patent and unremarkable. HEART: Size within normal limits. MEDIASTINUM: No gross evidence of adenopathy. VASCULATURE: No aortic aneurysm. MUSCULOSKELETAL: No acute osseous abnormalities. SOFT TISSUES/LYMPH NODES: Unremarkable. LOWER NECK: No significant findings. ABDOMEN: ABDOMEN LIVER: Scattered hypodense probable hepatic cysts. GALLBLADDER AND BILE DUCTS: Gallbladder surgically absent. PANCREAS: No ductal dilation or evidence for pancreatitis. There is a peripherally calcified 30 x 24 mm lesion near the pancreatic tail. SPLEEN: Unremarkable. ADRENAL GLANDS: Unremarkable. KIDNEYS AND URETERS: No evidence of hydronephrosis or renal calculus. The ureters are unremarkable. STOMACH AND BOWEL: No evidence of bowel obstruction. Scattered colonic diverticula. The appendix is n ormal. PERITONEUM/RETROPERITONEUM: No evidence of pneumoperitoneum or free fluid. VASCULATURE: No evidence of aortic aneurysm. MUSCULOSKELETAL: No acute osseous abnormalities LYMPH NODES: No gross evidence for lymphadenopathy. SOFT TISSUE/ABDOMINAL WALL: Unremarkable IMPRESSION: 1. The lungs are clear. No evidence for acute thoracic process. 2. Left upper quadrant/pancreatic tail peripherally calcified lesion measuring 30 x 24 mm. Finding p ossibly representing hematoma given history this is stable back to at least 2011 3. Scattered simple appearing probable hepatic cysts 4. Colonic diverticulosis. [facility], , 02/24/2024 10:11 AM
[2024-02-24] MEDS: ERGOCALCIFEROL 1,250 MCG (50,000 IU) CAPSULE PO SCH (10:27)
[2024-02-24] MEDS: ASPIRIN 81 MG PO SCH (10:27)
[2024-02-24] MEDS: ONDANSETRON 4 MG/2 ML VIAL IVP PRN (10:35)
[2024-02-24] MEDS: PANTOPRAZOLE 40 MG/10 ML VIAL IVP SCH (10:35)
[2024-02-24 10:59] LABS: Chol/HDL Ratio 2.51 Ratio; LDL Cholesterol,Calculated 69.4 mg/dL (0.0-131.0); VLDL Calculation 11.32 mg/dL (5.00-40.00)
[2024-02-24] MEDS: GABAPENTIN 300 MG CAP PO SCH (12:13)
[2024-02-24] MEDS: amLODIPine 5 MG TAB PO SCH (12:16)
[2024-02-24] MEDS: MONTELUKAST 10 MG TAB PO SCH (12:16)
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
--- NOTE | 2024-02-24 14:28 | CA ---
Transthoracic Echo Report Name: Ethan Valdez Age: 58 Gender: M : 1965 Exam Date: 02/24/2024 08:05 Exam Location: [place] [facility] Ht (in): 71 Wt (lb): 216 Ordering Physician: Len Lowry DO Attending/Referring Phys: Supervisor Dyer Kacey Adams RDCS Procedure CPT: Indications: Thrombus Cardiac Hx: Technical Quality: Fair Contrast 1: Total Dose (mL): Contrast 2: Total Dose (mL): MEASUREMENTS (Male / Female) Normal Values 2D ECHO LV Diastolic Diameter PLAX 4.5 cm 4.2 - 5.9 / 3.9 - 5.3 cm LV Systolic Diameter PLAX 2.9 cm IVS Diastolic Thickness 1.4 cm 0.6 - 1.0 / 0.6 - 0.9 cm LVPW Diastolic Thickness 1.5 cm 0.6 - 1.0 / 0.6 - 0.9 cm LV Relative Wall Thickness 0.7 RV Internal Dim ED PLAX 3.9 cm LA Systolic Diameter LX 4.1 cm 3.0 - 4.0 / 2.7 - 3.8 cm LV Diastolic Volume MOD BP 100.0 cm??? 67 - 155 / 56 - 104 cm??? LV Systolic Volume MOD BP 50.0 cm??? 22 - 58 / 19 - 49 cm??? LV Ejection Fraction MOD BP 50.1 % >= 55 % LV Cardiac Index MOD BP 1319.4 cm???/min???m??? LV Diastolic Volume MOD 4C 98.6 cm??? LV Systolic Volume MOD 4C 53.3 cm??? LV Ejection Fraction MOD 4C 45.9 % LV Cardiac Index MOD 4C 1193.6 cm???/min???m??? LV Diastolic Length 4C 7.8 cm LV Systolic Length 4C 6.7 cm LV Diastolic Volume MOD 2C 104.3 cm??? LV Systolic Volume MOD 2C 44.5 cm??? LV Ejection Fraction MOD 2C 57.4 % LV Cardiac Index MOD 2C 1577.7 cm???/min???m??? LV Diastolic Length 2C 7.5 cm LV Systolic Length 2C 6.4 cm LA Volume 46.0 cm??? 18 - 58 / 22 - 52 cm??? LA Volume Index 20.5 cm???/m??? 16 - 28 cm???/m??? M-MODE Aortic Root Diameter MM 3.7 cm AV Cusp Separation MM 2.8 cm DOPPLER AV Peak Velocity 104.2 cm/s AV Peak Gradient 4.3 mmHg MV Area PHT 2.6 cm??? Mitral E Point Velocity 58.3 cm/s Mitral A Point Velocity 85.8 cm/s Mitral E to A Ratio 0.7 MV Deceleration Time 288.5 ms TR Peak Velocity 212.1 cm/s TR Peak Gradient 18.0 mmHg Right Ventricular Systolic Press 23.0 mmHg FINDINGS Left Ventricle Left ventricular ejection fraction is estimated at 50-55 %. Left ventricular cavity size normal. Moderate concentric left ventricular hypertrophy. Normal left ventricular wall motion. Right Ventricle Moderate right ventricular dilatation. Right ventricular systolic pressure within normal limits. Right Atrium Normal right atrial size. No right atrial thrombus or mass seen. Left Atrium Normal left atrial size. No left atrial thrombus or mass present. Mitral Valve Structurally normal mitral valve. No mitral stenosis, regurgitation or prolapse. Aortic Valve Trileaflet aortic valve. No aortic valve stenosis or regurgitation. Tricuspid Valve Structurally normal tricuspid valve. Trace to mild tricuspid regurgitation. Pulmonic Valve Structurally normal pulmonic valve. Trace pulmonic regurgitation. Pericardium No pericardial or pleural effusion. Aorta Normal size aortic root and proximal ascending aorta. CONCLUSIONS Left ventricular ejection fraction 50-55% Moderately increased left ventricular wall thickness Trace to mild tricuspid regurgitation No pericardial effusion Previewed by: Dr. Ryan Branch DO (Electronically Signed) Final Date: 24 February 2024 14:27
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
[2024-02-24] MEDS: HEPARIN SODIUM,PORCINE 5,000 UNIT/ML 1 ML VIAL SQ SCH (16:22)
--- NOTE | 2024-02-24 18:14 | CT ---
EXAMINATION TYPE: CT angio chest CT DLP: 574 mGycm, Automated exposure control for dose reduction was used. DATE OF EXAM: 02/24/2024 6:05 PM COMPARISON: CT chest same day. CLINICAL INDICATION: Male, 58 years old with history of high d-dimer; elevated d-dimer TECHNIQUE/CONTRAST: CTA scan of the thorax is performed with IV Contrast, patient injected with 100ml mL of Isovue 370, M IP images are created and reviewed these are created on a separate workstation.. FINDINGS: Pulmonary Artery: There is no evidence for a filling defect within the pulmonary vasculature to sugge st acute pulmonary embolism. The pulmonary artery is of normal size. LUNGS/ PLEURA: No focal consolidation, pneumothorax or pleural effusion. AIRWAY: Patent and unremarkable. HEART: Size within normal limits. MEDIASTINUM: No gross evidence of adenopathy. VASCULATURE: No aortic aneurysm. MUSCULOSKELETAL: No acute osseous abnormalities. SOFT TISSUES/LYMPH NODES: Unremarkable. LOWER NECK: No significant findings. See dedicated CT from same day for additional findings in the abdomen and pelvis. IMPRESSION: 1. No evidence of pulmonary embolism. 2. No acute thoracic process. Follow up recommendations for incidental pulmonary nodules, if there are any, are per [employer]s [employer] or [employer]. https://radiopaedia.org/articles/qpxjfzblso-[email or web address]?lang=us [facility], , 02/24/2024 6:11 PM
[2024-02-24] MEDS: carBAMazepine 300 MG CPMP.12HR PO SCH (20:47)
[2024-02-25 08:41] LABS: HCT 40.2 % (39.6-50.0); MCH 28.1 pg (27.0-32.0); MCHC 32.3 g/dL (32.0-37.0); MCV 86.8 FL (80.0-97.0); Mean Platelet Volume 10.3 FL (9.5-12.2); NRBC Per 100 WBC 0 X 10*3/uL (0.00-0.01); Platelet Count 166 X 10*3/uL (140-440); RBC 4.63 X 10*6/uL (4.40-5.60); RDW 14.6 % (11.5-14.5); WBC 5.77 X 10*3/uL (4.50-10.00)
--- NOTE | 2024-02-25 11:43 | P.PN ---
Subjective Progress Note Date: 02/25/24 CHIEF COMPLAINT: Slurred speech HISTORY OF PRESENT ILLNESS: Surgical service is following in regards to p mikaela's bruising in the left upper quadrant of the abdomen. He has no pain. He is tolerating diet. During my exam patient was able to speak and then had changes in his speech, difficulty with finding words. And was rubbing the side of his head. This was discussed with nursing staff. They report the patient has been doing this and is being followed closely by neurology with adjustment of medications for Tegretol toxicity. Afebrile. WBC 5.7 Hgb stable at 13 Patient seen and examined with Dr. Long PHYSICAL EXAM: VITAL SIGNS: Reviewed. GENERAL: no acute distress. ABDOMEN: Soft. Nondistended. Nontender. Ecchymosis left upper quadrant is smaller today today NEUROLOGIC: Awake and alert. ASSESSMENT: 1. Left upper quadrant contusion due to trauma from fall and hitting countertop 2. Calcified changes in the pancreas on CAT scan likely due to chronic pancreatitis 3. Tegretol toxicity followed by neurology PLAN: -No surgical intervention planned -Patient on regular diet Physician Obiee Report Developer note has been reviewed by physician. Signing provider agrees with the documented findings, assessment, and plan of care. Objective - Vital Signs Vital signs: Vital Signs Temp 96.9 F L 02/25/24 07:00 Pulse 70 02/25/24 07:00 Resp 16 02/25/24 07:00 BP 162/84 02/25/24 07:00 Pulse Ox 99 02/25/24 07:00 FiO2 Intake & Output 02/24/24 02/25/24 02/25/24 18:59 06:59 18:59 Intake Total 118 Output Total 1050 Balance 118 -1050 Intake: Oral 118 Output: Urine 1050 Other: Voiding Method Toilet Urinal Urinal # Voids 3 # Bowel Movements 0 - Labs CBC & Chem 7: 02/25/24 03:55 02/23/24 15:10 Labs: Abnormal Lab Results - Last 24 Hours (Table) 02/24/24 02/25/24 Range/Units 05:53 03:55 RDW 14.6 H (11.5-14.5) % Folate 3.10 L (4.40-31.00) ng/mL
--- NOTE | 2024-02-25 12:37 | PN ---
PROGRESS NOTE 58-year-old white male, came in with bruising of the left upper quadrant from trauma he had a week ago. He is rubbing the side of his head, being followed closely by Neurology. Tegretol toxicity. Hemoglobin is 13, white count 5.7. OBJECTIVE: VITAL SIGNS: Stable. Afebrile. CARDIOVASCULAR: S1, S2. LUNGS: Transmitted upper sounds. He has left upper quadrant contusion from falling, and he had calcified changes on CAT scan and chronic pancreatitis, Tegretol toxicity, COPD. PLAN: Continue current treatments with Neurology's recommendations. Surgery ruled out any traumatic problem to his left upper quadrant. He had a CT of the chest for elevated D- dimer. No abnormalities. Continue current treatment. Prognosis guarded. Follow up in next 24 to 48 hours. MMODL / IJN: [id number] /
[2024-02-25] MEDS: CYANOCOBALAMIN 1,000 MCG/ML 1 ML VIAL IM ONE (13:12)
[2024-02-25] MEDS: FOLIC ACID 1 MG TAB PO SCH (13:12)
[2024-02-25] MEDS: OXcarbazepine 300 MG TAB PO SCH (15:39)
[2024-02-25] MEDS: GABAPENTIN 400 MG CAP PO SCH (17:39)
--- NOTE | 2024-02-26 12:33 | P.PN ---
Subjective Progress Note Date: 02/25/24 Patient was seen for a follow-up. Patient states his symptoms of trigeminal neuralgia has improved only 5% with starting gabapentin. Patient's sister was also present by the bedside. Objective - Vital Signs Vital signs: Vital Signs Temp 96.9 F L 02/25/24 07:00 Pulse 70 02/25/24 07:00 Resp 16 02/25/24 07:00 BP 162/84 02/25/24 07:00 Pulse Ox 99 02/25/24 07:00 FiO2 Intake & Output 02/24/24 02/25/24 02/25/24 18:59 06:59 18:59 Intake Total 118 Output Total 1050 Balance 118 -1050 Intake: Oral 118 Output: Urine 1050 Other: Voiding Method Toilet Urinal Urinal # Voids 3 # Bowel Movements 0 - Exam Examination unchanged. Patient appears slightly more comfortable. - Labs CBC & Chem 7: 02/25/24 03:55 02/23/24 15:10 Labs: Abnormal Lab Results - Last 24 Hours (Table) 02/24/24 02/25/24 Range/Units 05:53 03:55 RDW 14.6 H (11.5-14.5) % Folate 3.10 L (4.40-31.00) ng/mL Assessment and Plan Assessment: * Intermittent episodes of slurred speech, diplopia, dizziness likely related to Tegretol toxicity. Doubt stroke/TIA. * Trigeminal neuralgia, right facial region, medically intractable so far. * Chronic, bilateral, severe sphenoid sinusitis * Multiple sclerosis Plan: * Patient's speech difficulty is likely related to Tegretol toxicity. Tegretol level 8.8 (4-12). Tegretol over time has not helped him significantly. * Tegretol decreased down to 300 mg twice daily (instead of 400 mg twice daily) on 02/24/2024. We will further decrease it down to 200 mg twice daily today. * Started gabapentin 300 mg 3 times daily on 02/24/2024. We will increase dose to 400 mg 3 times daily. * Start Trileptal 300 mg twice daily. * If the trigeminal neuralgia persists, then I would recommend patient follow-up at tertiary care center for possible gamma knife surgery or microvascular decompression. * CT head revealed evidence of bilateral complete opacification of the sphenoid sinuses. However, there is complete opacification of sphenoid sinuses have been present since the CT head from 04/29/2016 as well. Chronic sphenoid sinusitis can exacerbate headache. * Recommend ENT consultation for chronic sphenoid sinusitis. * CTA head and neck showed: Revealed no significant abnormality. * Carotid Doppler, also revealed no significant stenosis with antegrade flow in both vertebral arteries. * Fasting a.m. lipid panel with cholesterol 134, LDL 69, HDL 53, triglycerides 56. Lipids are well-controlled. No indication for statins. * Hemoglobin A1c 5.7 on 05/20/2022 * B12 324, folate 3.10, both are low. We will start B12 and folate replacement. * Optimize control of blood pressure. * Continue aspirin 81 mg daily * Telemetry monitoring rule out any arrhythmia * Patient is a fall risk. * DVT prophylaxis: Heparin 5000 units subcu every 8 hours
--- NOTE | 2024-02-26 13:17 | P.PN ---
Subjective Progress Note Date: 02/26/24 CHIEF COMPLAINT: Slurred speech HISTORY OF PRESENT ILLNESS: Surgical service is following in regards to p mikaela's bruising in the left upper quadrant of the abdomen. Patient has no abdominal pain. The bruise in that left upper quadrant is improving. Patient's speech is better at the moment. Hemoglobin has remained stable at 13 PHYSICAL EXAM: VITAL SIGNS: Reviewed. GENERAL: no acute distress. ABDOMEN: Soft. Nondistended. Nontender. Ecchymosis left upper quadrant is smaller and less prominent today NEUROLOGIC: Awake and alert. ASSESSMENT: 1. Left upper quadrant contusion due to trauma from fall and hitting countertop 2. Calcified changes in the pancreas on CAT scan likely due to chronic pancreatitis 3. Tegretol toxicity followed by neurology PLAN: -No surgical intervention planned -Patient on regular diet Physician Furnace Roaster note has been reviewed by physician. Signing provider agrees with the documented findings, assessment, and plan of care. Objective - Vital Signs Vital signs: Vital Signs Temp 97.7 F 02/26/24 07:00 Pulse 92 02/26/24 09:00 Resp 16 02/26/24 07:00 BP 138/87 02/26/24 07:00 Pulse Ox 100 02/26/24 07:00 FiO2 Intake & Output 02/25/24 02/26/24 02/26/24 18:59 06:59 18:59 Intake Total 540 118 Balance 540 118 Intake: Oral 540 118 Other: Voiding Method Urinal Bedside Commode Bedside Commode # Voids 3 1 - Labs CBC & Chem 7: 02/25/24 03:55 02/23/24 15:10
[2024-02-26 14:05] VITALS: BP 147/90; PULSE 77; RESP 17; TEMP 98.5
[2024-02-26] MEDS: CYANOCOBALAMIN 500 MCG TAB PO SCH (15:58)
[2024-02-26] MEDS ORDERED: DOXYCYCLINE 100 MG CAP PO SCH (21:00)
--- NOTE | 2024-02-27 12:45 | P.PN ---
Subjective Progress Note Date: 02/26/24 Patient was seen for a follow-up. Patient states his symptoms are about gone. Remarkable improvement in his pain. He is feeling much better. Offers no complaints. Objective - Vital Signs Vital signs: Vital Signs Temp 98.5 F 02/26/24 14:04 Pulse 77 02/26/24 14:04 Resp 17 02/26/24 14:04 BP 147/90 02/26/24 14:04 Pulse Ox 100 02/26/24 14:04 FiO2 Intake & Output 02/26/24 02/27/24 02/27/24 18:59 06:59 18:59 Intake Total 118 Balance 118 Weight 97.976 kg Intake: Oral 118 Other: Voiding Method Bedside Commode # Voids 2 - Exam Examination unchanged. Patient appears very comfortable. Talking much more clearly. He does walk, but appears somewhat unsteady. He has to use a walker. - Labs CBC & Chem 7: 02/25/24 03:55 02/23/24 15:10 Assessment and Plan Assessment: * Intermittent episodes of slurred speech, diplopia, dizziness likely related to Tegretol toxicity. Doubt stroke/TIA. * Trigeminal neuralgia, right facial region, medically intractable so far. * Chronic, bilateral, severe sphenoid sinusitis * Multiple sclerosis * B12 and folate deficiency Plan: * Patient's speech difficulty is likely related to Tegretol toxicity. Tegretol level 8.8 (4-12). Tegretol over time has not helped him significantly. * Tegretol decreased down to 300 mg twice daily (instead of 400 mg twice daily) on 02/24/2024. We will further decrease it down to 200 mg twice daily today. * Started gabapentin 300 mg 3 times daily on 02/24/2024. We will increase dose to 400 mg 3 times daily. * Start Trileptal 300 mg twice daily. * Patient's symptoms of trigeminal neuralgia has remarkably improved. Patient cleared to be discharged with above medication regimen. Patient to follow-up with his neurologist. Would suggest gradually tapering off Tegretol, and if needed, increase Trileptal. * If the trigeminal neuralgia persists, then I would recommend patient follow-up at tertiary care center for possible gamma knife surgery or microvascular decompression. * CT head revealed evidence of bilateral complete opacification of the sphenoid sinuses. However, there is complete opacification of sphenoid sinuses have been present since the CT head from 04/29/2016 as well. Chronic sphenoid sinusitis can exacerbate headache. * Recommend ENT consultation for chronic sphenoid sinusitis. This can be done as an outpatient. * CTA head and neck showed: Revealed no significant abnormality. * Carotid Doppler, also revealed no significant stenosis with antegrade flow in both vertebral arteries. * Fasting a.m. lipid panel with cholesterol 134, LDL 69, HDL 53, triglycerides 56. Lipids are well-controlled. No indication for statins. * Hemoglobin A1c 5.7 on 05/20/2022 * B12 324, folate 3.10, both are low. We will start B12 and folate replacement. * Optimize control of blood pressure. * Continue aspirin 81 mg daily * Telemetry monitoring rule out any arrhythmia * Patient is a fall risk. Should always use a walker. * Neurologically clear for discharge.
== END 2024-02-26 18:30 | disposition home or self-care (01) ==
LOC: EC 14:34 → 6NMEDSUR 17:14
PROVIDERS: ADMIT Family Medicine; ATTEND Family Medicine
DX: R47.81 Slurred speech (principal); H53.2 Diplopia; R42 Dizziness and giddiness; T42.1X5A Adverse effect of iminostilbenes, initial encounter; G50.0 Trigeminal neuralgia; J32.3 Chronic sphenoidal sinusitis; G35 Multiple sclerosis; E53.8 Deficiency of other specified B group vitamins; J44.9 Chronic obstructive pulmonary disease, unspecified; I82.502 Chronic embolism and thrombosis of unspecified deep veins of left lower extremity; K86.1 Other chronic pancreatitis; R19.7 Diarrhea, unspecified; D72.819 Decreased white blood cell count, unspecified; I10 Essential (primary) hypertension; S30.1XXA Contusion of abdominal wall, initial encounter; W19.XXXA Unspecified fall, initial encounter; F12.90 Cannabis use, unspecified, uncomplicated; Z79.82 Long term (current) use of aspirin; Z79.899 Other long term (current) drug therapy; Z87.891 Personal history of nicotine dependence; Z88.8 Allergy status to other drugs, medicaments and biological substances
CPT/HCPCS: 96376 ×4; 96361 ×3; 96365; 96372 ×2; 96375 ×2; 99285; 36415; 94640 ×3; 93005; 93306; 97162; 97166; 92610; 85379; 80156; 80061; 80053; 84443; 82607; 82550; 82746; 84484; 85025; 85027; 85610; 85730; 71046; 93880; 70496; 70450; 71250; 74150; 70498; 71275; G0378 ×4; J3420; J2405; J0696; J1885 ×3; J1171 ×2; Q9967 ×2; J2919 ×2; J2470 ×3

== ENCOUNTER 2024-08-21 00:55 | Emergency (ER) | payer OTHER ==
[2024-08-21 01:01] VITALS: RESP 18; TEMP 98.2
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
[2024-08-21] MEDS: KETOROLAC 15 MG/ML 1 ML VIAL IVP STA (02:46)
[2024-08-21] MEDS: HYDROcodone/APAP 5-325MG 1 EACH TAB PO STA (03:51)
[2024-08-21 04:06] LABS: Basophils # (A) 0.04 10*3/uL (0.00-0.10); Eosinophils # (A) 0.05 10*3/uL (0.04-0.35); Eosinophils % (A) 1.3 %; HCT 43.8 % (39.6-50.0); HGB 14.9 g/dL (13.0-17.0); Lymphocytes # (A) 1.14 10*3/uL (0.90-5.00); Lymphocytes % (A) 29.7 %; MCH 28.7 pg (27.0-32.0); MCV 84.2 fL (80.0-97.0); Mean Platelet Volume 9.2 fL (9.5-12.2); Monocytes % (A) 7.8 %; Neutrophils # (A) 2.28 10*3/uL (1.80-7.70); Neutrophils % (A) 59.4 %; Platelet Count 167 10*3/uL (140-440); WBC 3.84 10*3/uL (4.50-10.00)
[2024-08-21 04:50] LABS: ALT 26 U/L (4-49); AST 23 U/L (17-59); African American GFR (CKD) >90 (>60 ml/min/1.73 sqM); Alkaline Phosphatase 64 U/L (38-126); Anion Gap 8 mmol/L; Blood Urea Nitrogen 15 mg/dL (9-20); Calcium 9.1 mg/dL (8.4-10.2); Carbon Dioxide 23 mmol/L (22-30); Chloride 107 mmol/L (98-107); Glucose 86 mg/dL (74-99); Non-African American GFR(CKD) >90 (>60 ml/min/1.73 sqM); Potassium 3.7 mmol/L (3.5-5.1); Sodium 138 mmol/L (137-145); Total Bilirubin 0.9 mg/dL (0.2-1.3); Total Protein 6.6 g/dL (6.3-8.2)
[2024-08-21 04:57] LABS: C Reactive Protein <0.5 mg/dL (<1.0)
--- NOTE | 2024-08-21 05:08 | CT ---
EXAM: CT Head Without Intravenous Contrast CLINICAL HISTORY: ITS.REASON CT Reason: facial pain TECHNIQUE: Axial computed tomography images of the head/brain without intravenous contrast. CTDI is 49.1 mGy and DLP is 1258.4 mGy-cm. This CT exam was performed using one or more of the following dose reduction techniques: automated exposure control, adjustment of the mA and/or kV according to patient size, and/or use of iterative reconstruction technique. 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 No hemorrhage. Ventricles: Unremarkable. No ventriculomegaly. Bones/joints: Unremarkable. No acute fracture. Soft tissues: Unremarkable. Sinuses: Completely opacified sphenoid sinuses as on the prior. Mildly expanded appearance anteriorly with possible erosion of the anterior wall on the left. Right maxillary sinus mucous retention cyst or polyp. Findings are stable. No fluid levels. Mastoid air cells: Unremarkable as visualized. No mastoid effusion. IMPRESSION: 1. No evidence of acute intracranial abnormality. 2. Completely opacified sphenoid sinuses as on the prior. Mildly expanded appearance anteriorly with possible erosion of the anterior wall on the left. May represent mucocele. 3. Stable paranasal sinus disease.
[2024-08-21] MEDS: AMOXIC-POT CLAV 875-125MG 1 EACH TAB PO STA (06:11)
[2024-08-21 06:20] VITALS: BP 137/96; PULSE 79
[2024-08-21 12:00] LABS: Erythrocyte Sedimentation Rate 13 mm/Hr (0-20)
== END 2024-08-21 06:12 | disposition home or self-care (01) ==
LOC: EC 00:55
DX: J32.0 Chronic maxillary sinusitis (principal); R51.9 Headache, unspecified; G50.0 Trigeminal neuralgia; Z87.891 Personal history of nicotine dependence; Z88.3 Allergy status to other anti-infective agents; Z88.8 Allergy status to other drugs, medicaments and biological substances
CPT/HCPCS: 36415; 80053; 85652; 85025; 86140; 70450; 99284; 96374; J1885